=== PATIENT | male | born 1955 | race Caucasian/White ===

== ENCOUNTER 2019-05-27 13:47 | Inpatient (IN) | payer OTHER ==
[2019-05-27 15:50] VITALS: BMI 25.3
--- NOTE | 2019-05-27 17:28 | HP ---
CIWA Score Nausea/Vomitin Muscle Tremors: 4-Moderate,w/Arms Extend Anxiety: 2 Agitation: 1-Slight > Activity Paroxysmal Sweats: 4-Forehead w/Sweat Beads Orientation: 0-Oriented Tacttile Disturbances: 1-Very Mild Itch/Numbness Auditory Disturbances: 0-None Visual Disturbances: 0-None Headache: 2-Mild CIWA-Ar Total Score: 19 - Admission Criteria OASAS Guidelines: Admission for Medically Managed Detox: Requires at least one of the followin. CIWA greater than 12 2. Seizures within the past 24 hours 3. Delirium tremens within the past 24 hours 4. Hallucinations within the past 24 hours 5. Acute intervention needed for co occurring medical disorder 6. Acute intervention needed for co occurring psychiatric disorder 7. Severe withdrawal that cannot be handled at a lower level of care (continued vomiting, continued diarrhea, abnormal vital signs) requiring intravenous medication and/or fluids 8. Admitting History and Physical - Past Medical History Cardiovascular: Yes: HTN Psych: Yes: Depression - Past Surgical History Past Surgical History: Yes: Appendectomy - Smoking History Smoking history: Current some day smoker Have you smoked in the past 12 months: No Aproximately how many cigarettes per day: 0 - Alcohol/Substance Use Hx Alcohol Use: Yes History of Substance Use: reports: Marijuana Admission ROS S - HPI Allergies/Adverse Reactions: Allergies Allergy/AdvReac Type Severity Reaction Status Date / Time latex Allergy Unknown Verified 05/27/19 15:43 No Known Drug Allergies Allergy Verified 05/27/19 15:43 History of Present Illness: 63 y.o. M PMH HTN. Pt presenting from , given librium & motrin. Patient's u-tox shows benzos, opiates & oxy-- denies taking any of these , says maybe he took an unmarked pain medication but thought it was motrin. EtOH: Daily use, 1 pint vodka + 5 beers daily but varies by the day. Last drink 7PM yesterday, drank 7 beers. Started drinking heavily 3 mo. ago-- was sober 1.5 years, now experiencing depression. Has been drinking x 30 yrs. Marijuana: occasional use Cigarettes: occasional use PSH: appendectomy Social hx: living on the streets. Not currently working. All: latex Meds: norvasc - Ebola screening Have you traveled outside of the country in the last 21 days: No Have you had contact with anyone from an Ebola affected area: No Do you have a fever: No - Review of Systems Constitutional: Diaphoresis EENT: reports: No Symptoms Reported Respiratory: reports: No Symptoms reported Cardiac: reports: No Symptoms Reported GI: reports: Nausea, Vomiting : reports: No Symptoms Reported Musculoskeletal: reports: No Symptoms Reported Integumentary: reports: No Symptoms Reported Neuro: reports: Headache, Tremors Endocrine: reports: No Symptoms Reported Hematology: reports: No Symptoms Reported Psychiatric: reports: Mood/Affect Appropiate, Orientated x3 Patient History - Patient Medical History Hx Anemia: No Hx Asthma: No Hx Chronic Obstructive Pulmonary Disease (COPD): No Hx Cancer: No Hx Cardiac Disorders: No Hx Congestive Heart Failure: No Hx Hypertension: Yes (Not on medication) Hx Hypercholesterolemia: No Hx Pacemaker: No HX Cerebrovascular Accident: No Hx Seizures: No Hx Dementia: No Hx Diabetes: No Hx Gastrointestinal Disorders: No Hx Liver Disease: No Hx Genitourinary Disorders: No Hx Sexually Transmitted Disorders: No Hx Renal Disease (ESRD): No Hx Thyroid Disease: No Hx Human Immunodeficiency Virus (HIV): No Hx Hepatitis C: No Hx Depression: Yes (WAS LEXAPRO. Not on medication now) Hx Suicide Attempt: No Hx Bipolar Disorder: No Hx Schizophrenia: No - Patient Surgical History Past Surgical History: Yes Hx Neurologic Surgery: No Hx Cataract Extraction: No Hx Cardiac Surgery: No Hx Lung Surgery: No Hx Breast Surgery: No Hx Breast Biopsy: No Hx Abdominal Surgery: No Hx Appendectomy: Yes (in 2006) Hx Cholecystectomy: No Hx Genitourinary Surgery: No Hx Section: No Hx Orthopedic Surgery: No Anesthesia Reaction: No - PPD History Date: 01/13/18 Results: 0 mm - Smoking Cessation Smoking history: Current some day smoker Have you smoked in the past 12 months: No Aproximately how many cigarettes per day: 0 Hx Chewing Tobacco Use: No Initiated information on smoking cessation: Yes 'Breaking Loose' booklet given: 05/27/19 - Substance & Tx. History Hx Alcohol Use: Yes Substance Use Type: Marijuana - Substances abused Alcohol Substance route: Oral Frequency: Daily Amount used: 6 pk - 1/2 quart beers Age of first use: 14 Date of last use: 05/26/19 Admission Physical Exam BHS - Vital Signs Vital Signs: Vital Signs - 24 hr 05/27/19 05/27/19 15:43 17:07 Temperature 97.5 F L 97.5 F L Pulse Rate 93 H 93 H Respiratory 18 18 Rate Blood Pressure 195/112 H 195/112 H - Physical General Appearance: Yes: Mild Distress, Tremorous, Anxious HEENTM: Yes: Hearing grossly Normal, Normocephalic, Normal Voice, JAIME Respiratory: Yes: Lungs Clear, Normal Breath Sounds, No Respiratory Distress, No Accessory Muscle Use Neck: Yes: Within Normal Limits Cardiology: Yes: Regular Rhythm, Regular Rate Abdominal: Yes: Normal Bowel Sounds, Non Tender, Soft Musculoskeletal: Yes: full range of Motion Extremities: Yes: Normal Range of Motion, Tremors Neurological: Yes: Fully Oriented, Alert Integumentary: Yes: Within Normal Limits - Diagnostic (1) Alcohol dependence with uncomplicated withdrawal Current Visit: No Status: Acute Breathalyzer - Breathalyzer Breathalyzer: 0 Urine Drug Screen - Test Device Lot number: [id number] Expiration date: 01/17/21 - Control Is test valid?: Yes - Results Drug screen NEGATIVE: No Urine drug screen results: MOP-Opiates, OXY-Oxycodone, BZO-Benzodiazepines Inpatient Rehab Admission - Rehab Decision to Admit Inpatient rehab admission?: No
[2019-05-27] MEDS ORDERED: MAG HYDROX/AL HYDROX/SIMETH 30 ML UNIT-DOSE CUP PO PRN (17:47)
[2019-05-27] MEDS ORDERED: MAGNESIUM CITRATE 300 ML BOTTLE PO PRN (17:47)
[2019-05-27] MEDS ORDERED: hydrOXYzine PAMOATE 25 MG CAPSULE (FP) PO PRN (17:47)
[2019-05-27] MEDS ORDERED: BISMUTH SUBSALICYLATE 524 MG/30 ML UD PO PRN (17:47)
[2019-05-27] MEDS ORDERED: MENTHOL/PHENOL 1 EACH UD MM PRN (17:47)
[2019-05-27] MEDS ORDERED: chlordiazePOXIDE HCL 25 MG CAPSULE PO PRN (17:47)
[2019-05-27] MEDS ORDERED: ACETAMINOPHEN 325 MG TABLET (FP) PO PRN ×2 (17:47)
[2019-05-27] MEDS ORDERED: MAGNESIUM HYDROX 2400MG/30ML ORAL SUSPENSION 30 ML CUP PO PRN (17:47)
--- NOTE | 2019-05-27 17:47 | PN ---
Teaching Attending Note Name of Resident: Michelle Kate ATTENDING PHYSICIAN STATEMENT I saw and evaluated the patient. I reviewed the resident's note and discussed the case with the resident. I agree with the resident's findings and plan as documented. SUBJECTIVE: pt here requesting detox from etoh use , reports 3 pints/day x 3 months , prior sobriety x 2 years w/ AA< intermittent episodes of sobriety and etoh relapse since 30 years ago , denies w/d seizures, + tremors, was at [facility] today in the ER , referred to this facility denies opiate use PMHX : HTN , stopped taking meds 10 days ago . OBJECTIVE: wnwd , tremulous Vital Signs - 24 hr 05/27/19 05/27/19 15:43 17:07 Temperature 97.5 F L 97.5 F L Pulse Rate 93 H 93 H Respiratory 18 18 Rate Blood Pressure 195/112 H 195/112 H ASSESSMENT AND PLAN: AUD - Librium detox HTN - restart meds
[2019-05-27] MEDS ORDERED: chlordiazePOXIDE HCL 10 MG CAPSULE PO ONE (18:45)
[2019-05-27] MEDS: amLODIPine BESYLATE 10 MG TABLET (FP) PO SCH (18:50)
[2019-05-27] MEDS ORDERED: hydrALAZINE HCL 10 MG TABLET PO ONE (19:00)
[2019-05-27] MEDS: chlordiazePOXIDE HCL 25 MG CAPSULE PO SCH (22:17)
[2019-05-27] MEDS: MELATONIN 5 MG TABLETS PO PRN (22:17)
[2019-05-27] MEDS: THIAMINE HCL 100 MG TABLET (FP) PO SCH (22:17)
[2019-05-28] MEDS: chlordiazePOXIDE HCL 25 MG CAPSULE PO SCH ×2 (05:04→10:19)
[2019-05-28 10:04] LABS: HEMATOCRIT 46.6 % (35.4-49); MCHC 34.2 g/dl (32.0-35.9); MEAN CELL VOLUME 99.4 fl (80-96); MEAN PLT VOLUME 9.8 fl (7.5-11.1); PLATELET COUNT 127 K/MM3 (134-434); RBC 4.69 M/mm3 (4.00-5.60); RDW 14.3 % (11.9-15.9); WHITE BLOOD COUNT 2.8 K/mm3 (4.0-10.0)
[2019-05-28 10:07] LABS: BLOOD UREA NITROGEN 9.7 mg/dL (7-18); CALCIUM 8.8 mg/dL (8.5-10.1); CREATININE 0.9 mg/dL (0.55-1.3); POTASSIUM 3.6 mmol/L (3.5-5.1); TOT PROT 7.6 g/dl (6.4-8.2)
[2019-05-28] MEDS: amLODIPine BESYLATE 10 MG TABLET (FP) PO SCH (10:19)
[2019-05-28] MEDS: PRENATAL VITAMINS W/ FOLIC ACID TABLET (FP) PO SCH (10:19)
--- NOTE | 2019-05-28 10:53 | PN ---
S CIWA - CIWA Score Nausea/Vomitin-Mild Nausea/No Vomiting Muscle Tremors: 1-None Visible, but [place] Anxiety: 2 Agitation: 2 Paroxysmal Sweats: No Perspiration Orientation: 0-Oriented Tacttile Disturbances: 1-Very Mild Itch/Numbness Auditory Disturbances: 0-None Visual Disturbances: 0-None Headache: 1-Very Mild CIWA-Ar Total Score: 8 BHS Progress Note (SOAP) Subjective: alert,irritable,anxious,interrupted sleep,pain in the body Objective: 05/28/19 10:49 Vital Signs Temperature 98.6 F 05/28/19 09:20 Pulse Rate 87 05/28/19 09:20 Respiratory Rate 18 05/28/19 09:20 Blood Pressure 148/86 05/28/19 09:20 O2 Sat by Pulse Oximetry (%) Laboratory Last Values WBC 2.8 K/mm3 (4.0-10.0) L 05/28/19 08:00 RBC 4.69 M/mm3 (4.00-5.60) 05/28/19 08:00 Hgb 16.0 GM/dL (11.7-16.9) 05/28/19 08:00 Hct 46.6 % (35.4-49) D 05/28/19 08:00 MCV 99.4 fl (80-96) H 05/28/19 08:00 MCH 34.0 pg (25.7-33.7) H 05/28/19 08:00 MCHC 34.2 g/dl (32.0-35.9) 05/28/19 08:00 RDW 14.3 % (11.9-15.9) 05/28/19 08:00 Plt Count 127 K/MM3 (134-434) L D 05/28/19 08:00 MPV 9.8 fl (7.5-11.1) 05/28/19 08:00 Sodium 138 mmol/L (136-145) 05/28/19 08:00 Potassium 3.6 mmol/L (3.5-5.1) 05/28/19 08:00 Chloride 102 mmol/L (98-107) 05/28/19 08:00 Carbon Dioxide 31 mmol/L (21-32) 05/28/19 08:00 Anion Gap 5 MMOL/L (8-16) L 05/28/19 08:00 BUN 9.7 mg/dL (7-18) 05/28/19 08:00 Creatinine 0.9 mg/dL (0.55-1.3) 05/28/19 08:00 Est GFR (CKD-EPI)AfAm 104.98 05/28/19 08:00 Est GFR (CKD-EPI)NonAf 90.58 05/28/19 08:00 Random Glucose 89 mg/dL (74-106) 05/28/19 08:00 Calcium 8.8 mg/dL (8.5-10.1) 05/28/19 08:00 Total Bilirubin 1.0 mg/dL (0.2-1) 05/28/19 08:00 AST 273 U/L (15-37) H 05/28/19 08:00 ALT 140 U/L (13-61) H 05/28/19 08:00 Alkaline Phosphatase 73 U/L (45-117) 05/28/19 08:00 Total Protein 7.6 g/dl (6.4-8.2) 05/28/19 08:00 Albumin 4.0 g/dl (3.4-5.0) 05/28/19 08:00 05/28/19 10:51 rpr pending Assessment: 05/28/19 10:53 withdrawal symptom Plan: continue detox,ativan hilaryan
[2019-05-28] MEDS ORDERED: LORazepam 1 MG TABLET PO PRN (11:17)
--- NOTE | 2019-05-28 11:50 | CONSULT ---
[facility] Psychiatric Consult - Data Date of interview: 05/28/19 Admission source: [facility] Identifying data: Readmission to [facility] for this 63 y/o male self- referred for detoxification (AILYN issues : alcohol, cannabis, nicotine). Examined at [address] [place] [address]. Patient is , a father of three, domiciled and reportedly self-employed. Substance Abuse History: Discussed with the patient. Mr Mckinney states that he uses alcohol, marihuana and cigarettes. Declines to provide elaborate details about his pattern of abuse. See current [facility] report as follows : Smoking history : Current some day smoker. Have you smoked in the past 12 months: No. Aproximately how many cigarettes per day: 0. Alcohol/Substance Use. Hx Alcohol Use: Yes. History of Substance Use: reports: Marijuana Medical History: Medical profile is consistent with hypertension, antecedent of withdrawal-related seizures and history of appendectomy. Psychiatric History: Patient endorses history of one psychiatric hospitalization (2013) at [facility]. Diagnosed with MDD. Reports past maintenance with lexapro. Mr Mckinney indicates that he did " not stay long " in treatment. No contact with psychiatric OPD care providers. Has been lost to follow-up for years. Patient denies history of suicide attempts. Physical/Sexual Abuse/Trauma History: No information. Patient declines discussion. Additional Comment: Urine drug screen results: MOP-Opiates, OXY-Oxycodone, BZO- Benzodiazepines. Noted. Mental Status Exam - Mental Status Exam Alert and Oriented to: Time, Place, Person Cognitive Function: Good Patient Appearance: Unkempt, Disheveled Mood: Withdrawn Affect: Mood Congruent, Constricted Patient Behavior: Fatigued, Cooperative (superficially cooperative) Speech Pattern: Clear Voice Loudness: Normal Thought Process: Goal Oriented Thought Disorder: Not Present Hallucinations: Denies Suicidal Ideation: Denies Homicidal Ideation: Denies Insight/Judgement: Poor Sleep: Poorly (wants trazodone), Difficulty falling asleep Appetite: Fair Gait/Station: Other (not observed; supine for entire length of interview) Psychiatric Findings - Problem List ([place] 1, 2,3) (1) Alcohol dependence with uncomplicated withdrawal Current Visit: Yes Status: Acute (2) Nicotine dependence Current Visit: Yes Status: Chronic (3) Substance induced mood disorder Current Visit: Yes Status: Chronic (4) Insomnia Current Visit: Yes Status: Chronic (5) History of depression Current Visit: Yes Status: Chronic (6) Non-compliance Current Visit: Yes Status: Chronic - Initial Treatment Plan Initial Treatment Plan: Psychoeducation. Sleep hygiene. Detoxification. AA meetings. Trazodone 50 mg po hs (patient's request). Made aware of risk of priapism. Mr Mckinney states that he has taken that drug in a recent past " without any problem ". Consents verbally to this plan of care. Observation.
[2019-05-28] MEDS: LORazepam 2 MG TABLET PO SCH ×2 (17:30→22:02)
[2019-05-28] MEDS: traZODone HCL 50 MG TABLET (FP) PO SCH (22:02)
[2019-05-28] MEDS: MELATONIN 5 MG TABLETS PO PRN (22:02)
[2019-05-28] MEDS: THIAMINE HCL 100 MG TABLET (FP) PO SCH (22:02)
[2019-05-29] MEDS ORDERED: chlordiazePOXIDE HCL 25 MG CAPSULE PO SCH (05:00)
[2019-05-29] MEDS: LORazepam 2 MG TABLET PO SCH ×4 (05:16→22:16)
[2019-05-29] MEDS: PRENATAL VITAMINS W/ FOLIC ACID TABLET (FP) PO SCH (10:19)
[2019-05-29] MEDS: amLODIPine BESYLATE 10 MG TABLET (FP) PO SCH (10:19)
--- NOTE | 2019-05-29 10:48 | PN ---
S CIWA - CIWA Score Nausea/Vomitin-No Nausea/No Vomiting Muscle Tremors: None Anxiety: 3 Agitation: 0-Normal Activity Paroxysmal Sweats: 3 Orientation: 0-Oriented Tacttile Disturbances: 0-None Auditory Disturbances: 0-None Visual Disturbances: 0-None Headache: 2-Mild CIWA-Ar Total Score: 8 BHS Progress Note (SOAP) Subjective: c/o sweats, headache, and anxiety. Objective: 05/29/19 10:45 Vital Signs 05/29/19 05/29/19 05/29/19 03:30 06:05 09:26 Temperature 98.3 F 98.5 F Pulse Rate 90 117 H Respiratory 18 18 18 Rate Blood Pressure 112/74 128/84 Lab Results WBC 2.8 K/mm3 (4.0-10.0) L 05/28/19 08:00 RBC 4.69 M/mm3 (4.00-5.60) 05/28/19 08:00 Hgb 16.0 GM/dL (11.7-16.9) 05/28/19 08:00 Hct 46.6 % (35.4-49) D 05/28/19 08:00 MCV 99.4 fl (80-96) H 05/28/19 08:00 MCHC 34.2 g/dl (32.0-35.9) 05/28/19 08:00 RDW 14.3 % (11.9-15.9) 05/28/19 08:00 Plt Count 127 K/MM3 (134-434) L D 05/28/19 08:00 Sodium 138 mmol/L (136-145) 05/28/19 08:00 Potassium 3.6 mmol/L (3.5-5.1) 05/28/19 08:00 Chloride 102 mmol/L (98-107) 05/28/19 08:00 Carbon Dioxide 31 mmol/L (21-32) 05/28/19 08:00 Anion Gap 5 MMOL/L (8-16) L 05/28/19 08:00 BUN 9.7 mg/dL (7-18) 05/28/19 08:00 Creatinine 0.9 mg/dL (0.55-1.3) 05/28/19 08:00 Random Glucose 89 mg/dL (74-106) 05/28/19 08:00 Calcium 8.8 mg/dL (8.5-10.1) 05/28/19 08:00 Labs noted. Assessment: 05/29/19 10:48 AOX3, in no acute respiratory distress. Full rom, ambulating in the unit. Withdrawal symptoms. Plan: continue detox.
[2019-05-29 11:05] LABS: HEMATOCRIT 45.3 % (35.4-49); HEMOGLOBIN 15.3 GM/dL (11.7-16.9); MCH 33.6 pg (25.7-33.7); MCHC 33.6 g/dl (32.0-35.9); MEAN PLT VOLUME 9.9 fl (7.5-11.1); PLATELET COUNT 134 K/MM3 (134-434); RBC 4.54 M/mm3 (4.00-5.60); RDW 14.1 % (11.9-15.9)
[2019-05-29 11:07] LABS: ALBUMIN 3.8 g/dl (3.4-5.0); BILIRUBIN,TOTAL 0.8 mg/dL (0.2-1); BLOOD UREA NITROGEN 14.8 mg/dL (7-18); CALCIUM 9.1 mg/dL (8.5-10.1); POTASSIUM 3.5 mmol/L (3.5-5.1); TOT PROT 7.4 g/dl (6.4-8.2)
[2019-05-29 11:21] LABS: INR 1.04 (0.83-1.09); PROTHROMBIN TIME (PATIENT) 12.3 SEC (9.7-13.0)
[2019-05-29] MEDS: IBUPROFEN 400 MG TABLET (FP) PO PRN (19:09)
[2019-05-29] MEDS: traZODone HCL 50 MG TABLET (FP) PO SCH (22:15)
[2019-05-29] MEDS: THIAMINE HCL 100 MG TABLET (FP) PO SCH (22:16)
[2019-05-29] MEDS: MELATONIN 5 MG TABLETS PO PRN (22:16)
[2019-05-30] MEDS ORDERED: chlordiazePOXIDE HCL 10 MG CAPSULE PO PRN
[2019-05-30] MEDS ORDERED: chlordiazePOXIDE HCL 10 MG CAPSULE PO SCH (05:00)
[2019-05-30] MEDS: LORazepam 1 MG TABLET PO SCH ×4 (05:45→22:45)
[2019-05-30] MEDS: amLODIPine BESYLATE 10 MG TABLET (FP) PO SCH (10:16)
[2019-05-30] MEDS: PRENATAL VITAMINS W/ FOLIC ACID TABLET (FP) PO SCH (10:16)
--- NOTE | 2019-05-30 10:26 | PN ---
[facility] CIWA - CIWA Score Nausea/Vomitin-No Nausea/No Vomiting Muscle Tremors: 1-None Visible, but [place] Anxiety: 1-Mildly Anxious Agitation: 1-Slight > Activity Paroxysmal Sweats: 1-Minimal Palms Moist Orientation: 0-Oriented Tacttile Disturbances: 0-None Auditory Disturbances: 0-None Visual Disturbances: 0-None Headache: 0-None Present CIWA-Ar Total Score: 4 BHS Progress Note (SOAP) Subjective: 63 years old male admitted on 05/27/19 for alcohol withdrawal sx management treated with ativan detox regimen patient tolerated well report trouble sleep at night belsomar 5 mg po x 1 hs Objective: 05/30/19 10:25 Vital Signs Temperature 96.0 F L 05/30/19 09:04 Pulse Rate 98 H 05/30/19 09:04 Respiratory Rate 18 05/30/19 09:04 Blood Pressure 116/83 05/30/19 09:04 O2 Sat by Pulse Oximetry (%) 05/30/19 10:25 Laboratory Last Values WBC 3.0 K/mm3 (4.0-10.0) L 05/29/19 07:50 RBC 4.54 M/mm3 (4.00-5.60) 05/29/19 07:50 Hgb 15.3 GM/dL (11.7-16.9) 05/29/19 07:50 Hct 45.3 % (35.4-49) 05/29/19 07:50 MCV 100.0 fl (80-96) H 05/29/19 07:50 MCH 33.6 pg (25.7-33.7) 05/29/19 07:50 MCHC 33.6 g/dl (32.0-35.9) 05/29/19 07:50 RDW 14.1 % (11.9-15.9) 05/29/19 07:50 Plt Count 134 K/MM3 (134-434) 05/29/19 07:50 MPV 9.9 fl (7.5-11.1) 05/29/19 07:50 PT with INR 12.30 SEC (9.7-13.0) 05/29/19 07:50 INR 1.04 (0.83-1.09) 05/29/19 07:50 Sodium 138 mmol/L (136-145) 05/29/19 07:50 Potassium 3.5 mmol/L (3.5-5.1) 05/29/19 07:50 Chloride 103 mmol/L (98-107) 05/29/19 07:50 Carbon Dioxide 28 mmol/L (21-32) 05/29/19 07:50 Anion Gap 8 MMOL/L (8-16) 05/29/19 07:50 BUN 14.8 mg/dL (7-18) 05/29/19 07:50 Creatinine 1.0 mg/dL (0.55-1.3) 05/29/19 07:50 Est GFR (CKD-EPI)AfAm 92.42 05/29/19 07:50 Est GFR (CKD-EPI)NonAf 79.75 05/29/19 07:50 Random Glucose 96 mg/dL (74-106) 05/29/19 07:50 Calcium 9.1 mg/dL (8.5-10.1) 05/29/19 07:50 Total Bilirubin 0.8 mg/dL (0.2-1) 05/29/19 07:50 AST 346 U/L (15-37) H 05/29/19 07:50 ALT 197 U/L (13-61) H 05/29/19 07:50 Alkaline Phosphatase 72 U/L (45-117) 05/29/19 07:50 Total Protein 7.4 g/dl (6.4-8.2) 05/29/19 07:50 Albumin 3.8 g/dl (3.4-5.0) 05/29/19 07:50 RPR Titer Nonreactive (NONREACTIVE) 05/28/19 08:00 lab noted ast elevation repeat ast continue ativan detox regimen 05/30/19 10:26 Assessment: 05/30/19 10:27 alcohol withdrawal sx Plan: continue ativan detox regimen
[2019-05-30] MEDS ORDERED: SUVOREXANT 5 MG TABLET PO ONE (22:00)
[2019-05-30] MEDS: traZODone HCL 50 MG TABLET (FP) PO SCH (22:44)
[2019-05-30] MEDS: THIAMINE HCL 100 MG TABLET (FP) PO SCH (22:45)
[2019-05-31] MEDS ORDERED: LORazepam 0.5 MG TABLET PO PRN
[2019-05-31] MEDS ORDERED: chlordiazePOXIDE HCL 10 MG CAPSULE PO SCH (05:00)
[2019-05-31] MEDS: LORazepam 0.5 MG TABLET PO SCH ×4 (05:08→22:18)
[2019-05-31] MEDS: IBUPROFEN 400 MG TABLET (FP) PO PRN (05:08)
--- NOTE | 2019-05-31 10:05 | PN ---
[facility] CIWA - CIWA Score Nausea/Vomitin-No Nausea/No Vomiting Muscle Tremors: 1-None Visible, but [place] Anxiety: 1-Mildly Anxious Agitation: 0-Normal Activity Paroxysmal Sweats: No Perspiration Orientation: 0-Oriented Tacttile Disturbances: 0-None Auditory Disturbances: 0-None Visual Disturbances: 0-None Headache: 0-None Present CIWA-Ar Total Score: 2 S Progress Note (SOAP) Subjective: 63 years old male admitted on 05/27/19 for alcohol withdrawal sx management treated with ativan detox regimen patient tolerated well feeling better less tremor mild anxiety ate breakfast tolerated food and fluid well Objective: 05/31/19 10:02 Vital Signs Temperature 98.5 F 05/31/19 09:21 Pulse Rate 73 05/31/19 09:21 Respiratory Rate 18 05/31/19 09:21 Blood Pressure 113/71 05/31/19 09:21 O2 Sat by Pulse Oximetry (%) Laboratory Last Values WBC 3.0 K/mm3 (4.0-10.0) L 05/29/19 07:50 RBC 4.54 M/mm3 (4.00-5.60) 05/29/19 07:50 Hgb 15.3 GM/dL (11.7-16.9) 05/29/19 07:50 Hct 45.3 % (35.4-49) 05/29/19 07:50 MCV 100.0 fl (80-96) H 05/29/19 07:50 MCH 33.6 pg (25.7-33.7) 05/29/19 07:50 MCHC 33.6 g/dl (32.0-35.9) 05/29/19 07:50 RDW 14.1 % (11.9-15.9) 05/29/19 07:50 Plt Count 134 K/MM3 (134-434) 05/29/19 07:50 MPV 9.9 fl (7.5-11.1) 05/29/19 07:50 PT with INR 12.30 SEC (9.7-13.0) 05/29/19 07:50 INR 1.04 (0.83-1.09) 05/29/19 07:50 Sodium 138 mmol/L (136-145) 05/29/19 07:50 Potassium 3.5 mmol/L (3.5-5.1) 05/29/19 07:50 Chloride 103 mmol/L (98-107) 05/29/19 07:50 Carbon Dioxide 28 mmol/L (21-32) 05/29/19 07:50 Anion Gap 8 MMOL/L (8-16) 05/29/19 07:50 BUN 14.8 mg/dL (7-18) 05/29/19 07:50 Creatinine 1.0 mg/dL (0.55-1.3) 05/29/19 07:50 Est GFR (CKD-EPI)AfAm 92.42 05/29/19 07:50 Est GFR (CKD-EPI)NonAf 79.75 05/29/19 07:50 Random Glucose 96 mg/dL (74-106) 05/29/19 07:50 Calcium 9.1 mg/dL (8.5-10.1) 05/29/19 07:50 Total Bilirubin 0.8 mg/dL (0.2-1) 05/29/19 07:50 AST 346 U/L (15-37) H 05/29/19 07:50 ALT 197 U/L (13-61) H 05/29/19 07:50 Alkaline Phosphatase 72 U/L (45-117) 05/29/19 07:50 Total Protein 7.4 g/dl (6.4-8.2) 05/29/19 07:50 Albumin 3.8 g/dl (3.4-5.0) 05/29/19 07:50 RPR Titer Nonreactive (NONREACTIVE) 05/28/19 08:00 lab noted ast elevation discuss alcohol related ast elevation and liver insult strong recommend the patient bringing in lab report to aftercare for follow up 05/31/19 10:03 Assessment: 05/31/19 10:04 alcohol withdrawal sx Plan: continue ativan detox regimen
[2019-05-31] MEDS: amLODIPine BESYLATE 10 MG TABLET (FP) PO SCH (10:58)
[2019-05-31] MEDS: PRENATAL VITAMINS W/ FOLIC ACID TABLET (FP) PO SCH (10:58)
[2019-05-31] MEDS: THIAMINE HCL 100 MG TABLET (FP) PO SCH (22:18)
[2019-05-31] MEDS: traZODone HCL 50 MG TABLET (FP) PO SCH (22:18)
[2019-06-01] MEDS ORDERED: chlordiazePOXIDE HCL 10 MG CAPSULE PO ONE (05:00)
[2019-06-01] MEDS ORDERED: LORazepam 0.5 MG TABLET PO ONE (05:00)
[2019-06-01 10:03] VITALS: BP 104/65; PULSE 78; TEMP 98.2
[2019-06-01] MEDS: amLODIPine BESYLATE 10 MG TABLET (FP) PO SCH (10:12)
[2019-06-01] MEDS: PRENATAL VITAMINS W/ FOLIC ACID TABLET (FP) PO SCH (10:12)
--- NOTE | 2019-06-01 13:49 | DS ---
[facility] Detox Discharge Summary Admission Date: 05/27/19 Discharge Date: 06/01/19 - History Present History: Alcohol Dependence Additional Comments: 63 years old male admitted on 05/27/19 for alcohol withdrawal sx management treated with ativan detox regimen patient is alert oriented x 3 respiratory clear lung bilaterally on auscultation abdomen soft no rebound tenderness skin warm and dry - Physical Exam Results Vital Signs: Vital Signs Temperature 98.2 F 06/01/19 10:02 Pulse Rate 78 06/01/19 10:02 Respiratory Rate 18 06/01/19 10:02 Blood Pressure 104/65 06/01/19 10:02 O2 Sat by Pulse Oximetry (%) Pertinent Admission Physical Exam Findings: alcohol withdrawal sx Laboratory Last Values WBC 3.0 K/mm3 (4.0-10.0) L 05/29/19 07:50 RBC 4.54 M/mm3 (4.00-5.60) 05/29/19 07:50 Hgb 15.3 GM/dL (11.7-16.9) 05/29/19 07:50 Hct 45.3 % (35.4-49) 05/29/19 07:50 MCV 100.0 fl (80-96) H 05/29/19 07:50 MCH 33.6 pg (25.7-33.7) 05/29/19 07:50 MCHC 33.6 g/dl (32.0-35.9) 05/29/19 07:50 RDW 14.1 % (11.9-15.9) 05/29/19 07:50 Plt Count 134 K/MM3 (134-434) 05/29/19 07:50 MPV 9.9 fl (7.5-11.1) 05/29/19 07:50 PT with INR 12.30 SEC (9.7-13.0) 05/29/19 07:50 INR 1.04 (0.83-1.09) 05/29/19 07:50 Sodium 138 mmol/L (136-145) 05/29/19 07:50 Potassium 3.5 mmol/L (3.5-5.1) 05/29/19 07:50 Chloride 103 mmol/L (98-107) 05/29/19 07:50 Carbon Dioxide 28 mmol/L (21-32) 05/29/19 07:50 Anion Gap 8 MMOL/L (8-16) 05/29/19 07:50 BUN 14.8 mg/dL (7-18) 05/29/19 07:50 Creatinine 1.0 mg/dL (0.55-1.3) 05/29/19 07:50 Est GFR (CKD-EPI)AfAm 92.42 05/29/19 07:50 Est GFR (CKD-EPI)NonAf 79.75 05/29/19 07:50 Random Glucose 96 mg/dL (74-106) 05/29/19 07:50 Calcium 9.1 mg/dL (8.5-10.1) 05/29/19 07:50 Total Bilirubin 0.8 mg/dL (0.2-1) 05/29/19 07:50 AST 346 U/L (15-37) H 05/29/19 07:50 ALT 197 U/L (13-61) H 05/29/19 07:50 Alkaline Phosphatase 72 U/L (45-117) 05/29/19 07:50 Total Protein 7.4 g/dl (6.4-8.2) 05/29/19 07:50 Albumin 3.8 g/dl (3.4-5.0) 05/29/19 07:50 RPR Titer Nonreactive (NONREACTIVE) 05/28/19 08:00 lab noted ast elevation Vital Signs Temperature 98.2 F 06/01/19 10:02 Pulse Rate 78 06/01/19 10:02 Respiratory Rate 18 06/01/19 10:02 Blood Pressure 104/65 06/01/19 10:02 O2 Sat by Pulse Oximetry (%) bp within acceptable range patient agrees to bring in lab report to primary care provider who monitoring bp in the community - Treatment Hospital Course: Detox Protocol Followed, Detoxed Safely, Responded well, Discharged Condition Good, Rehab Referral Accepted Patient has Accepted a Rehab Referral to: pat [facility] - Medication Discharge Medications: Ambulatory Orders Amlodipine Besylate [Norvasc -] 10 mg PO DAILY@1000 01/15/18 - Diagnosis (1) Essential hypertension Status: Chronic (2) Alcohol dependence with uncomplicated withdrawal Status: Acute (3) Nicotine dependence Status: Acute Qualifiers: Nicotine product type: cigarettes Substance use status: in withdrawal Qualified Code(s): F17.213 - Nicotine dependence, cigarettes, with withdrawal (4) Substance induced mood disorder Status: Suspected - AMA Did Patient Leave Against Medical Advice: No CIWA Score - CIWA Score Nausea/Vomitin-No Nausea/No Vomiting Muscle Tremors: 1-None Visible, but [place] Anxiety: 0-No Anxiety, at Ease Agitation: 0-Normal Activity Paroxysmal Sweats: No Perspiration Orientation: 0-Oriented Tacttile Disturbances: 0-None Auditory Disturbances: 0-None Visual Disturbances: 0-None Headache: 0-None Present CIWA-Ar Total Score: 1
--- NOTE | 2019-06-02 09:23 | EKG ---
Test Reason : Blood Pressure : / mmHG Vent. Rate : 075 BPM Atrial Rate : 075 BPM P-R Int : 128 ms QRS Dur : 070 ms QT Int : 400 ms P-R-T Axes : 011 048 020 degrees QTc Int : 446 ms POOR DATA QUALITY, INTERPRETATION MAY BE ADVERSELY AFFECTED SINUS RHYTHM WITH OCCASIONAL PREMATURE VENTRICULAR COMPLEXES OTHERWISE NORMAL ECG WHEN COMPARED WITH ECG OF 11-JAN-2018 11:28, PREMATURE VENTRICULAR COMPLEXES ARE NOW PRESENT T WAVE INVERSION NOW EVIDENT IN INFERIOR LEADS NONSPECIFIC T WAVE ABNORMALITY NO LONGER EVIDENT IN ANTEROLATERAL LEADS QT HAS SHORTENED Confirmed by FREEDOM FREEMAN, EDNA ([id number] on 06/02/2019 9:23:21 AM Referred By: Confirmed By:EDNA LOJA MD
== END 2019-06-01 11:55 | disposition home or self-care (01) | DRG 775 ==
LOC: YASAS 13:47 → Y3N 18:11
PROVIDERS: ADMIT Allergy & Immunology; ATTEND Allergy & Immunology
PROC: HZ2ZZZZ Detoxification Services for Substance Abuse Treatment (ICD-10-PCS; principal; 2019-05-27)
DX: F10.230 Alcohol dependence with withdrawal, uncomplicated (principal); F17.213 Nicotine dependence, cigarettes, with withdrawal; F32.9 Major depressive disorder, single episode, unspecified; F19.24 Other psychoactive substance dependence with psychoactive substance-induced mood disorder; I10 Essential (primary) hypertension; G47.00 Insomnia, unspecified; R74.8 Abnormal levels of other serum enzymes; Z91.040 Latex allergy status; Z91.19 Patient's noncompliance with other medical treatment and regimen; Z59.0 Homelessness
CPT/HCPCS: 36415; 80053; 85027; 85610; 86593; 93005; 93010

== ENCOUNTER 2021-01-20 00:27 | Inpatient (IN) | payer OTHER ==
[2021-01-20] MEDS ORDERED: chlordiazePOXIDE HCL 25 MG CAPSULE PO ONE (01:22)
[2021-01-20] MEDS ORDERED: SODIUM CHLORIDE 0.9% 500 ML INFUS.BAG IV ONE (01:22)
[2021-01-20 02:11] LABS: BASO % 0.5 % (0-2.0); EOS % 7.6 % (0-4.5); HEMATOCRIT 42.2 % (35.4-49); HEMOGLOBIN 14.4 GM/dL (11.7-16.9); LYMPH % 37.5 % (8-40); MCH 32.5 pg (25.7-33.7); MCHC 34.1 g/dl (32.0-35.9); MEAN CELL VOLUME 95.2 fl (80-96); MEAN PLT VOLUME 8.3 fl (7.5-11.1); MONO % 11.3 % (3.8-10.2); NEUT % 43.1 % (42.8-82.8); PLATELET COUNT 68 10^3/uL (134-434); RBC 4.44 M/mm3 (4.00-5.60); WHITE BLOOD COUNT 2.4 K/mm3 (4.0-10.0)
[2021-01-20] MEDS ORDERED: diazePAM CARPU-JECT 10 MG/2 ML DISP.SYRIN IVPUSH ONE (02:22)
[2021-01-20] MEDS ORDERED: diazePAM CARPU-JECT 10 MG/2 ML DISP.SYRIN ONE (02:31)
[2021-01-20 02:39] LABS: CHLORIDE 108 mmol/L (98-107); SODIUM 143 mmol/L (136-145)
[2021-01-20 02:41] LABS: INR 1.01 (0.83-1.09); PROTHROMBIN TIME (PATIENT) 12.2 SEC (9.7-13.0)
[2021-01-20 02:42] LABS: ANION GAP 10 MMOL/L (8-16); BLOOD UREA NITROGEN 6.1 mg/dL (7-18); CALCIUM 7.6 mg/dL (8.5-10.1); CO2 25 mmol/L (21-32); GLUCOSE,RANDOM 91 mg/dL (74-106); LIPASE 430 U/L (73-393); MAGNESIUM 2.3 mg/dL (1.8-2.4)
[2021-01-20 02:43] LABS: ACTIVATED PTT 24.6 SECONDS (25.2-36.5)
[2021-01-20 02:45] LABS: PHOSPHOROUS 3.8 mg/dL (2.5-4.9); SGOT/AST 360 U/L (15-37); SGPT/ALT 200 U/L (13-61)
[2021-01-20 02:46] LABS: BILIRUBIN,TOTAL 0.7 mg/dL (0.2-1); TOT PROT 7.3 g/dl (6.4-8.2)
[2021-01-20 02:48] LABS: ALK PHOS 76 U/L (45-117)
[2021-01-20] MEDS ORDERED: MAGNESIUM SULF 50% (8.12 MEQ/2 ML-1 GM VIAL) IVPB ONE (03:14)
[2021-01-20] MEDS ORDERED: POTASSIUM CHLORIDE TABS 20 MEQ TABLET.ER (FP) PO ONE ×2 (03:14→04:50)
[2021-01-20 04:44] VITALS: BMI 25.2
[2021-01-20 04:49] LABS: CREATININE 0.7 mg/dL (0.55-1.3)
[2021-01-20] MEDS ORDERED: MAGNESIUM SULFATE IN WATER 2 GM/50 ML IVPB IVPB ONE (04:50)
[2021-01-20] MEDS ORDERED: ONDANSETRON 4 MG/2 ML VIAL IVPUSH PRN (08:39)
[2021-01-20] MEDS ORDERED: LORazepam 2 MG/ML SDV VIAL IM PRN (08:45)
[2021-01-20] MEDS ORDERED: FOLIC ACID INJECTION - 1 MG, THIAMINE HCL 100 MG, MULTIVIT INJECTION ADULT 10 ML in SOD... IVPB ONE (08:52)
[2021-01-20] MEDS ORDERED: MULTIVITAMINS (DAILY MVI) TABLET (FP) ONE (09:46)
[2021-01-20] MEDS ORDERED: FOLIC ACID 1 MG TABLET (FP) ONE (09:47)
[2021-01-20] MEDS ORDERED: ENOXAPARIN NA (PORCINE) 40 MG/0.4 ML DISP.SYRIN SQ ONE (09:47)
[2021-01-20] MEDS ORDERED: LORazepam 2 MG/ML SDV VIAL ONE (09:47)
[2021-01-20] MEDS: MULTIVITAMINS (DAILY MVI) TABLET (FP) PO SCH (09:56)
[2021-01-20] MEDS: FOLIC ACID 1 MG TABLET (FP) PO SCH (09:56)
[2021-01-20] MEDS: ENOXAPARIN NA (PORCINE) 40 MG/0.4 ML DISP.SYRIN SQ SCH (09:56)
[2021-01-20] MEDS: LORazepam 2 MG/ML SDV VIAL IM SCH ×3 (09:56→21:27)
[2021-01-20 11:59] LABS: BASO % 1.6 % (0-2.0); EOS % 3.1 % (0-4.5); HEMATOCRIT 41.9 % (35.4-49); HEMOGLOBIN 14.5 GM/dL (11.7-16.9); LYMPH % 11.8 % (8-40); MCH 32.7 pg (25.7-33.7); MCHC 34.5 g/dl (32.0-35.9); MEAN CELL VOLUME 94.7 fl (80-96); MEAN PLT VOLUME 9.1 fl (7.5-11.1); MONO % 8.2 % (3.8-10.2); NEUT % 75.3 % (42.8-82.8); PLATELET COUNT 77 10^3/uL (134-434); RBC 4.42 M/mm3 (4.00-5.60); RDW 16.1 % (11.9-15.9); WHITE BLOOD COUNT 3.4 K/mm3 (4.0-10.0)
[2021-01-20 12:19] LABS: CALCIUM 7.7 mg/dL (8.5-10.1)
[2021-01-20 12:20] LABS: ALBUMIN 4.1 g/dl (3.4-5.0); BLOOD UREA NITROGEN 4.9 mg/dL (7-18)
[2021-01-20 12:23] LABS: CREATININE 0.6 mg/dL (0.55-1.3)
[2021-01-20 12:24] LABS: BILIRUBIN,TOTAL 0.9 mg/dL (0.2-1); TOT PROT 7.4 g/dl (6.4-8.2)
[2021-01-20 13:17] LABS: URINE BARBITURATES NEGATIVE (NEGATIVE)
[2021-01-20 13:18] LABS: COCAINE, UR NEGATIVE (NEGATIVE); METHADONE, UR NEGATIVE (NEGATIVE); PHENCYCLIDINE,URINE NEGATIVE (NEGATIVE)
[2021-01-20 13:44] LABS: OPIATES, URI NEGATIVE (NEGATIVE); URINE AMPHETAMINES NEGATIVE (NEGATIVE); URINE BENZODIAZEPINES POSITIVE (NEGATIVE)
[2021-01-20] MEDS: LORazepam 2 MG/ML SDV VIAL IVPUSH PRN (17:24)
[2021-01-21] MEDS ORDERED: ACETAMINOPHEN 325 MG TABLET (FP) PO ONE (00:49)
[2021-01-21] MEDS: LORazepam 2 MG/ML SDV VIAL IM SCH (03:23)
[2021-01-21] MEDS ORDERED: LORazepam 1 MG TABLET PO SCH (06:00)
[2021-01-21 07:16] LABS: HEMATOCRIT 45.2 % (35.4-49); HEMOGLOBIN 15.3 GM/dL (11.7-16.9); MCH 32.6 pg (25.7-33.7); MCHC 33.8 g/dl (32.0-35.9); MEAN CELL VOLUME 96.5 fl (80-96); MEAN PLT VOLUME 9.4 fl (7.5-11.1); PLATELET COUNT 67 10^3/uL (134-434); RBC 4.69 M/mm3 (4.00-5.60); RDW 16.2 % (11.9-15.9); WHITE BLOOD COUNT 5.3 K/mm3 (4.0-10.0)
[2021-01-21 07:27] LABS: INR 1.07 (0.83-1.09); PROTHROMBIN TIME (PATIENT) 13.1 SEC (9.7-13.0)
[2021-01-21 07:41] LABS: ALBUMIN 4.2 g/dl (3.4-5.0)
[2021-01-21 07:42] LABS: BLOOD UREA NITROGEN 7.2 mg/dL (7-18); MAGNESIUM 2.2 mg/dL (1.8-2.4)
[2021-01-21 07:45] LABS: CREATININE 0.6 mg/dL (0.55-1.3)
[2021-01-21 07:46] LABS: BILIRUBIN,TOTAL 1.4 mg/dL (0.2-1)
[2021-01-21 07:47] LABS: TOT PROT 7.8 g/dl (6.4-8.2)
[2021-01-21] MEDS: LORazepam 2 MG/ML SDV VIAL IVPUSH PRN (08:05)
[2021-01-21] MEDS ORDERED: LORazepam 2 MG/ML SDV VIAL IM PRN ×2 (08:10→11:06)
[2021-01-21] MEDS ORDERED: SODIUM CHLORIDE 1,000 ML IV SCH (08:15)
[2021-01-21] MEDS ORDERED: METOPROLOL TARTRATE 25 MG TABLET (FP) PO ONE (08:22)
[2021-01-21] MEDS ORDERED: POTASSIUM PHOSPHATE 30 MM in SODIUM CHLORIDE 500 ML IVPB ONE (09:00)
[2021-01-21] MEDS: ENOXAPARIN NA (PORCINE) 40 MG/0.4 ML DISP.SYRIN SQ SCH (09:04)
[2021-01-21] MEDS: MULTIVITAMINS (DAILY MVI) TABLET (FP) PO SCH (09:05)
[2021-01-21] MEDS: FOLIC ACID 1 MG TABLET (FP) PO SCH (09:05)
[2021-01-21] MEDS ORDERED: THIAMINE HCL 100 MG TABLET (FP) PO SCH ×2 (10:00)
[2021-01-21] MEDS ORDERED: LORazepam 2 MG/ML SDV VIAL IVPUSH ONE (12:42)
[2021-01-21 13:26] VITALS: BP 139/85; PULSE 106
[2021-01-21 13:33] VITALS: TEMP 99.9
[2021-01-22] MEDS ORDERED: LORazepam 1 MG TABLET PO SCH (06:00)
[2021-01-25] MEDS ORDERED: LORazepam 1 MG TABLET PO ONE (18:00)
== END 2021-01-21 13:42 | disposition left against medical advice (07) | DRG 770 ==
LOC: JER 00:27 → JERBED 04:44 → J7W 10:46
PROVIDERS: ADMIT Student in an Organized Health Care Education/Training Program; ATTEND Internal Medicine
PROC: HZ2ZZZZ Detoxification Services for Substance Abuse Treatment (ICD-10-PCS; principal; 2021-01-20)
DX: F10.230 Alcohol dependence with withdrawal, uncomplicated (principal); I10 Essential (primary) hypertension; F10.229 Alcohol dependence with intoxication, unspecified; E87.6 Hypokalemia; K70.10 Alcoholic hepatitis without ascites; M62.82 Rhabdomyolysis; R74.01 Elevation of levels of liver transaminase levels
CPT/HCPCS: 36415; 71045-TC-FY; 76705-TC; 80053; 80307; 82550; 82553; 83690; 83735; 84100; 84443; 84484; 85025; 85027; 85610; 85730; 93005; 93010; 99285-25; C9803; U0003; U0005

== ENCOUNTER 2021-01-21 14:59 | Emergency (ER) | payer OTHER ==
[2021-01-21 15:06] VITALS: BMI 27.3
[2021-01-21] MEDS ORDERED: LORazepam 2 MG TABLET PO ONE (16:37)
[2021-01-21] MEDS ORDERED: LORazepam 1 MG TABLET ONE (16:50)
[2021-01-21 18:58] VITALS: BP 128/77; PULSE 110; TEMP 97.7
== END 2021-01-21 17:30 | disposition home or self-care (01) ==
LOC: JER 14:59
DX: F10.230 Alcohol dependence with withdrawal, uncomplicated (principal)
CPT/HCPCS: 70450-TC; 72125-TC; 99284-25

== ENCOUNTER 2021-01-22 01:34 | Emergency (ER) | payer OTHER ==
[2021-01-22 01:43] VITALS: BP 124/89; PULSE 106; TEMP 98.2; BMI 24.3
== END 2021-01-22 02:57 | disposition home or self-care (01) ==
LOC: JER 01:34
DX: F10.10 Alcohol abuse, uncomplicated (principal)
CPT/HCPCS: 99283-25

== ENCOUNTER 2021-01-22 03:08 | Inpatient (IN) | payer OTHER ==
[2021-01-22 03:28] VITALS: BMI 24.5
[2021-01-22] MEDS ORDERED: MAG HYDROX/AL HYDROX/SIMETH 30 ML UNIT-DOSE CUP PO PRN (04:31)
[2021-01-22] MEDS ORDERED: P-EPHED 60MG/TRIPROLIDI 2.5MG TABLET PO PRN (04:31)
[2021-01-22] MEDS ORDERED: LOPERAMIDE HCL 2 MG CAPSULE PO PRN (04:31)
[2021-01-22] MEDS ORDERED: MAGNESIUM CITRATE 300 ML BOTTLE PO PRN (04:31)
[2021-01-22] MEDS ORDERED: IBUPROFEN 400 MG TABLET (FP) PO PRN (04:31)
[2021-01-22] MEDS ORDERED: ACETAMINOPHEN 325 MG TABLET (FP) PO PRN (04:31)
[2021-01-22] MEDS ORDERED: guaiFENesin 200 MG/10 ML 10 ML UNIT-DOSE CUPS PO PRN (04:31)
[2021-01-22] MEDS ORDERED: MAGNESIUM HYDROX 2400MG/30ML ORAL SUSPENSION 30 ML CUP PO PRN (04:31)
[2021-01-22 07:07] VITALS: BP 122/63; PULSE 116; TEMP 97.6
[2021-01-22] MEDS ORDERED: PRENATAL VITAMINS W/ FOLIC ACID TABLET (FP) PO SCH (10:00)
[2021-01-22] MEDS ORDERED: THIAMINE HCL 100 MG TABLET (FP) PO SCH (22:00)
[2021-01-22] MEDS ORDERED: MELATONIN 5 MG TABLETS PO SCH (22:00)
== END 2021-01-22 11:35 | disposition other institution (70) | DRG 772 ==
LOC: YASAS 03:08 → Y3W 04:37
PROVIDERS: ADMIT Allergy & Immunology; ATTEND Allergy & Immunology
PROC: HZ42ZZZ Group Counseling for Substance Abuse Treatment, Cognitive-Behavioral (ICD-10-PCS; principal; 2021-01-22)
DX: F10.230 Alcohol dependence with withdrawal, uncomplicated (principal); F32.9 Major depressive disorder, single episode, unspecified; F41.9 Anxiety disorder, unspecified; I10 Essential (primary) hypertension; Z86.69 Personal history of other diseases of the nervous system and sense organs; Z87.891 Personal history of nicotine dependence

== ENCOUNTER 2021-01-22 11:59 | Inpatient (IN) | payer OTHER ==
[2021-01-22] MEDS ORDERED: diazePAM 5 MG TABLET PO PRN ×2 (13:12→13:37)
[2021-01-22] MEDS ORDERED: BISMUTH SUBSALICYLATE 524 MG/30 ML PO PRN (13:13)
[2021-01-22] MEDS ORDERED: NICOTINE POLACRILEX 2 MG GUM BUC PRN (13:13)
[2021-01-22] MEDS ORDERED: MAGNESIUM CITRATE 300 ML BOTTLE PO PRN (13:13)
[2021-01-22] MEDS ORDERED: MENTHOL/PHENOL 1 EACH UD MM PRN (13:13)
[2021-01-22] MEDS ORDERED: MAG HYDROX/AL HYDROX/SIMETH 30 ML UNIT-DOSE CUP PO PRN (13:13)
[2021-01-22] MEDS ORDERED: MAGNESIUM HYDROX 2400MG/30ML ORAL SUSPENSION 30 ML CUP PO PRN (13:13)
[2021-01-22] MEDS ORDERED: IBUPROFEN 400 MG TABLET (FP) PO PRN (13:13)
[2021-01-22] MEDS ORDERED: ONDANSETRON *ODT* 4 MG TABLET SL PRN (13:13)
[2021-01-22] MEDS ORDERED: METHOCARBAMOL 500 MG TABLET PO PRN (13:13)
[2021-01-22] MEDS ORDERED: ACETAMINOPHEN 325 MG TABLET (FP) PO PRN ×2 (13:13)
[2021-01-22] MEDS ORDERED: hydrOXYzine PAMOATE 25 MG CAPSULE (FP) PO PRN (13:13)
[2021-01-22] MEDS ORDERED: diazePAM 5 MG TABLET PO ONE ×2 (13:45)
[2021-01-22] MEDS: diazePAM 5 MG TABLET PO SCH ×2 (18:11→23:25)
[2021-01-22] MEDS: THIAMINE HCL 100 MG TABLET (FP) PO SCH (23:25)
[2021-01-22] MEDS: MELATONIN 5 MG TABLETS PO SCH (23:25)
[2021-01-23] MEDS: diazePAM 5 MG TABLET PO SCH ×4 (06:05→22:53)
[2021-01-23] MEDS ORDERED: MASKS NR ONE (10:14)
[2021-01-23] MEDS: PRENATAL VITAMINS W/ FOLIC ACID TABLET (FP) PO SCH (10:36)
[2021-01-23] MEDS: amLODIPine BESYLATE 10 MG TABLET (FP) PO SCH (10:37)
[2021-01-23] MEDS: NICOTINE 7 MG/24 HOURS TOPICAL PATCH TD SCH (10:39)
[2021-01-23 15:16] LABS: HIV INTERPRETATION NEGATIVE (NEGATIVE)
[2021-01-23] MEDS: MELATONIN 5 MG TABLETS PO SCH (22:52)
[2021-01-23] MEDS: THIAMINE HCL 100 MG TABLET (FP) PO SCH (22:52)
[2021-01-24] MEDS: diazePAM 5 MG TABLET PO SCH ×2 (05:34→13:51)
[2021-01-24] MEDS: PRENATAL VITAMINS W/ FOLIC ACID TABLET (FP) PO SCH (10:29)
[2021-01-24] MEDS: amLODIPine BESYLATE 10 MG TABLET (FP) PO SCH (10:29)
[2021-01-24] MEDS: NICOTINE 7 MG/24 HOURS TOPICAL PATCH TD SCH (10:29)
[2021-01-24] MEDS ORDERED: PNEUMOC 13-VAL CONJ-DIP CRM/PF 0.5 ML DISP.SYRIN IM ONE (12:00)
[2021-01-24 17:34] VITALS: BP 120/78; PULSE 132; TEMP 98.2
[2021-01-25] MEDS ORDERED: diazePAM 5 MG TABLET PO SCH (06:00)
[2021-01-26] MEDS ORDERED: diazePAM 5 MG TABLET PO ONE (06:00)
== END 2021-01-24 18:22 | disposition home or self-care (01) | DRG 897 ==
LOC: YASAS 11:59 → Y3N 12:03
PROVIDERS: ADMIT Allergy & Immunology; ATTEND Allergy & Immunology
PROC: HZ2ZZZZ Detoxification Services for Substance Abuse Treatment (ICD-10-PCS; principal; 2021-01-22)
DX: F10.230 Alcohol dependence with withdrawal, uncomplicated (principal); F33.1 Major depressive disorder, recurrent, moderate; F10.24 Alcohol dependence with alcohol-induced mood disorder; F10.280 Alcohol dependence with alcohol-induced anxiety disorder; F10.282 Alcohol dependence with alcohol-induced sleep disorder; F17.210 Nicotine dependence, cigarettes, uncomplicated; F41.9 Anxiety disorder, unspecified; F19.24 Other psychoactive substance dependence with psychoactive substance-induced mood disorder; I10 Essential (primary) hypertension; R00.0 Tachycardia, unspecified; G47.00 Insomnia, unspecified; Z91.14 Patient's other noncompliance with medication regimen; Z86.69 Personal history of other diseases of the nervous system and sense organs
CPT/HCPCS: 36415; 70450-TC; 72125-TC; 87389; 99283-25; 99284-25

== ENCOUNTER 2023-04-02 17:02 | Inpatient (IN) | payer OTHER ==
[2023-04-02 17:34] VITALS: BMI 26.6
[2023-04-02] MEDS ORDERED: diazePAM 5 MG TABLET PO PRN (19:58)
[2023-04-02] MEDS ORDERED: ACETAMINOPHEN 325 MG TABLET (FP) PO PRN (20:02)
[2023-04-02] MEDS ORDERED: LOPERAMIDE HCL 2 MG CAPSULE PO PRN (20:02)
[2023-04-02] MEDS ORDERED: POLYETHYLENE GLYCOL (HEALTHYLAX) 3350 17 GM PACKET PO PRN (20:02)
[2023-04-02] MEDS ORDERED: BENZOCAINE/MENTHOL (CHLORASEPTIC ) LOZENGE MM PRN (20:02)
[2023-04-02] MEDS ORDERED: MAGNESIUM HYDROX 2400MG/30ML ORAL SUSPENSION 30 ML CUP PO PRN (20:02)
[2023-04-02] MEDS ORDERED: ONDANSETRON *ODT* 4 MG TABLET SL PRN (20:02)
[2023-04-02] MEDS ORDERED: BISMUTH SUBSALICYLATE 524 MG/30 ML PO PRN (20:02)
[2023-04-02] MEDS ORDERED: MAG HYDROX/AL HYDROX/SIMETH 30 ML UNIT-DOSE CUP PO PRN (20:02)
[2023-04-02] MEDS ORDERED: P-EPHED 60MG/TRIPROLIDI 2.5MG TABLET PO PRN (20:02)
[2023-04-02] MEDS ORDERED: IBUPROFEN 600 MG TABLET (FP) PO PRN (20:02)
[2023-04-02] MEDS ORDERED: BENZONATATE 200 MG CAPSULE PO PRN (20:02)
[2023-04-02] MEDS ORDERED: guaiFENesin 600 MG TABLET.ER (FP) PO PRN (20:02)
[2023-04-02] MEDS ORDERED: IBUPROFEN 400 MG TABLET (FP) PO PRN (20:02)
[2023-04-02] MEDS ORDERED: diazePAM 5 MG TABLET PO ONE (20:11)
[2023-04-02] MEDS ORDERED: diazePAM 5 MG TABLET ONE (20:14)
[2023-04-02] MEDS: diazePAM 5 MG TABLET PO SCH (22:24)
[2023-04-02] MEDS: ASPIRIN COATED 81 MG TABLET.EC PO SCH (22:24)
[2023-04-02] MEDS: THIAMINE HCL 100 MG TABLET (FP) PO SCH (22:24)
[2023-04-02] MEDS: levETIRAcetam 500 MG TABLET (FP) PO SCH (22:24)
[2023-04-02] MEDS: MELATONIN 5 MG TABLETS PO SCH (22:26)
[2023-04-03] MEDS: diazePAM 5 MG TABLET PO SCH ×4 (05:39→22:21)
[2023-04-03] MEDS: PRENATAL VITAMINS W/ FOLIC ACID TABLET (FP) PO SCH (10:33)
[2023-04-03] MEDS: ASPIRIN COATED 81 MG TABLET.EC PO SCH (10:33)
[2023-04-03] MEDS: amLODIPine BESYLATE 10 MG TABLET (FP) PO SCH (10:33)
[2023-04-03] MEDS: levETIRAcetam 500 MG TABLET (FP) PO SCH ×2 (10:33→22:20)
[2023-04-03] MEDS: THIAMINE HCL 100 MG TABLET (FP) PO SCH (22:20)
[2023-04-03] MEDS: MELATONIN 5 MG TABLETS PO SCH (22:22)
[2023-04-04] MEDS: diazePAM 5 MG TABLET PO SCH ×3 (05:39→22:15)
[2023-04-04] MEDS ORDERED: ESCITALOPRAM OXALATE 10 MG TABLET PO SCH (10:00)
[2023-04-04] MEDS: levETIRAcetam 500 MG TABLET (FP) PO SCH ×2 (10:31→22:15)
[2023-04-04] MEDS: ASPIRIN COATED 81 MG TABLET.EC PO SCH (10:31)
[2023-04-04] MEDS: PRENATAL VITAMINS W/ FOLIC ACID TABLET (FP) PO SCH (10:31)
[2023-04-04] MEDS: amLODIPine BESYLATE 10 MG TABLET (FP) PO SCH (10:31)
[2023-04-04] MEDS ORDERED: ESCITALOPRAM OXALATE 10 MG TABLET ONE (10:32)
[2023-04-04] MEDS: ESCITALOPRAM OXALATE 20 MG TABLET PO SCH (10:34)
[2023-04-04] MEDS: buPROPion HCL 75 MG TABLET PO SCH (10:34)
[2023-04-04] MEDS ORDERED: QUEtiapine FUMARATE 100 MG TABLET (FP) PO SCH (22:00)
[2023-04-04] MEDS: THIAMINE HCL 100 MG TABLET (FP) PO SCH (22:15)
[2023-04-05] MEDS: diazePAM 5 MG TABLET PO SCH ×2 (05:38→17:31)
[2023-04-05] MEDS: buPROPion HCL 75 MG TABLET PO SCH (10:27)
[2023-04-05] MEDS: ESCITALOPRAM OXALATE 20 MG TABLET PO SCH (10:27)
[2023-04-05] MEDS: PRENATAL VITAMINS W/ FOLIC ACID TABLET (FP) PO SCH (10:27)
[2023-04-05] MEDS: amLODIPine BESYLATE 10 MG TABLET (FP) PO SCH (10:27)
[2023-04-05] MEDS: ASPIRIN COATED 81 MG TABLET.EC PO SCH (10:28)
[2023-04-05] MEDS: levETIRAcetam 500 MG TABLET (FP) PO SCH (10:28)
[2023-04-05 18:01] VITALS: BP 102/95; PULSE 67; RESP 17; TEMP 97.9
[2023-04-06] MEDS ORDERED: diazePAM 5 MG TABLET PO ONE (06:00)
== END 2023-04-05 18:30 | disposition home or self-care (01) | DRG 897 ==
LOC: YASAS 17:02 → Y6N 20:32
PROVIDERS: ADMIT Allergy & Immunology; ATTEND Surgery
PROC: HZ2ZZZZ Detoxification Services for Substance Abuse Treatment (ICD-10-PCS; principal; 2023-04-02)
DX: F10.230 Alcohol dependence with withdrawal, uncomplicated (principal); F33.1 Major depressive disorder, recurrent, moderate; F17.210 Nicotine dependence, cigarettes, uncomplicated; F10.280 Alcohol dependence with alcohol-induced anxiety disorder; F10.24 Alcohol dependence with alcohol-induced mood disorder; F41.9 Anxiety disorder, unspecified; F32.A Depression, unspecified; I10 Essential (primary) hypertension; Z86.711 Personal history of pulmonary embolism; Z79.01 Long term (current) use of anticoagulants; Z86.69 Personal history of other diseases of the nervous system and sense organs; Z28.310 Unvaccinated for COVID-19; Z28.9 Immunization not carried out for unspecified reason; Z59.02 Unsheltered homelessness
CPT/HCPCS: 87635; Q0162